=== PATIENT | male | born 1930 | race Caucasian/White ===

== ENCOUNTER 2017-06-18 07:15 | Day surgery (SDC) | payer MEDICARE ==
[~2017-06-18] VITALS: Ht 172.7 cm; Wt 67.1 kg
[~2017-06-18 07:15] MED LIST: ASPIRIN EC81 MG PO; CARVEDILOL25 MG PO; FINASTERIDE5 MG PO; NORCO 5-325 TA1 EACH PO
--- NOTE | 2017-06-18 08:46 | NUR ---
PT IS ALERT AND ORIENTED. HE IS SOMEWHAT HARD OF HEARING, BUT WE MANAGED. HE HAS HAD PREVIOUS SCOPES-GENERAL MAINTENANCE. HE SEEMED PREPARED, THANKED ME FOR COMING IN-I EXTENDED A BLESSING TO HIM
--- NOTE | 2017-06-18 08:56 | NUR ---
06/18/17 0856 Amelia King 0843 ARRIVED IN PACU SLEEPY. ABD SOFT.
--- NOTE | 2017-06-26 18:42 | OR ---
[facility] [address], [place] [address] Signed DATE OF OPERATION: 06/18/2017 SURGEON: Chilo Jo MD PREOPERATIVE DIAGNOSES: 1. Personal history of colonic polyps. 2. Diverticulosis. 3. Internal anal skin tags. POSTOPERATIVE DIAGNOSES: 1. Moderate sigmoid diverticulosis. 2. Internal anal skin tags. 3. Prostate gland left side greater than right side. PROCEDURE: Colonoscopy without biopsy. ESTIMATED BLOOD LOSS: None. INDICATIONS: Briana is an 86-year-old gentleman, I have known for a number of years. He remains extremely active. In fact, last summer, he continues to mow his lawn in the neighboring [facility] with a push mower. He came to us in 2013 for repair of recurrent right inguinal hernia because it was bothering him with his activities. We have also helped him with various skin lesions. He has had a number of colonoscopies with a history of colonic polyps removed. Most of those were adenomatous. He also had a large villous adenomatous polyp with high-grade dysplasia removed from the anterior rectum at 12 cm. He remains quite concerned in that regard. His last colonoscopy was in 2011 and he wanted to come back and inquire about another colonoscopy. He also has moderate sigmoid diverticulosis along with internal anal skin tags. In the meantime, he continues to do well with his activities of daily living and his bowel movements. I had a long discussion with Briana in the office with respect to his age and ongoing colonoscopies. I think we will check him this one last time. He has been easy to scope in the past and he does well with his Versed and fentanyl. He understands colonoscopy very well. He understands there is risk including, but not limited to, gas bloating, crampy abdominal pain, bleeding, perforation, requiring surgery, and missed diagnosis. He also understands the need for IV conscious sedation. He had expressed understanding and wished to proceed. PROCEDURE NOTE: Electronically Signed By: CHILO JO MD 06/26/17 1842 PATIENT NAME: BRIANA WHITTAKER OPERATIVE REPORT DATE OF : 32 PHYSICIAN: CHILO JO MD REPORT #: [id number] REPORT IS CONFIDENTIAL AND NOT TO BE RELEASED WITHOUT AUTHORIZATION [facility] [address], [place] [address] Signed Briana was taken into our endoscopy suite and placed in the left lateral decubitus position. He was given 4 mg of Versed and 100 mcg of fentanyl for the case. A digital rectal exam was performed and his prostate gland is indurated and ever so slightly enlarged, but the left is certainly more prominent than the right. After this, the adult colonoscope was introduced and advanced under direct visualization of camera into the cecum without difficulty. His prep was moderate. He had some liquid particulate stool matter and I could not quite suction out completely. We saw no pathology in the colon other than his diverticulosis. They are moderate in size, moderate in number, and scattered about through the sigmoid colon and part of the left colon. There was no evidence of any polyps in the rectum. Upon retroflexion of scope, he does have some internal anal skin tags. After this, the gas was suctioned out and the colonoscope removed. Briana tolerated the procedure quite well. RECOMMENDATIONS: Briana can follow up in my office as needed for any future colonoscopies. He does have a skin lesion on his back that he wants me to remove and he is welcome to maintain that appointment. In addition, he might review his prostate exam with his primary care provider. Chilo Jo MD ALB/MODL /[id number] cc: Nelson Parra MD Electronically Signed By: CHILO JO MD 06/26/17 1842 PATIENT NAME: BRIANA WHITTAKER OPERATIVE REPORT DATE OF : 32 PHYSICIAN: CHILO JO MD REPORT #: [id number] REPORT IS CONFIDENTIAL AND NOT TO BE RELEASED WITHOUT AUTHORIZATION
== END 2017-06-18 09:15 | disposition home or self-care (01) ==
LOC: OPS 07:15 → DS 07:15 → OPS 09:15
PROVIDERS: Colon & Rectal Surgery
PROC: 0DJD8ZZ Inspection of Lower Intestinal Tract, Via Natural or Artificial Opening Endoscopic (ICD-10-PCS; principal; 2017-06-18 08:15)
DX: K57.30 Diverticulosis of large intestine without perforation or abscess without bleeding (principal); K64.8 Other hemorrhoids; I10 Essential (primary) hypertension; N40.0 Benign prostatic hyperplasia without lower urinary tract symptoms; M19.90 Unspecified osteoarthritis, unspecified site; F41.9 Anxiety disorder, unspecified; Z86.010 Personal history of colon polyps; Z86.73 Personal history of transient ischemic attack (TIA), and cerebral infarction without residual deficits; Z98.890 Other specified postprocedural states; Z79.899 Other long term (current) drug therapy
CPT/HCPCS: 99153; G0500; J2250; J3010

== ENCOUNTER 2017-10-10 04:59 | Emergency (ER) | payer MEDICARE ==
[~2017-10-10] VITALS: Ht 172.7 cm; Wt 67.1 kg
[2017-10-10] MEDS ORDERED: OXYBUTYNIN CHLOR5 MG PO (05:22)
[2017-10-10] MEDS ORDERED: SERTRALINE HCL25 MG PO (05:22)
[2017-10-10] MEDS ORDERED: ONDANSETRON ODT8 MG PO (08:51)
[2017-10-10] MEDS ORDERED: NORCO 5-325 TA1 EACH PO (08:51)
[2017-10-10] MEDS ORDERED: FLOMAX0.4 MG PO (08:54)
== END 2017-10-10 09:14 | disposition home or self-care (01) ==
LOC: ED 04:59
PROC: 4A0D7LZ Measurement of Urinary Volume, Via Natural or Artificial Opening (ICD-10-PCS; principal; 2017-10-10)
DX: N13.2 Hydronephrosis with renal and ureteral calculous obstruction (principal); I10 Essential (primary) hypertension; Z79.899 Other long term (current) drug therapy
CPT/HCPCS: 51798; 74177; 80053; 81001; 83690; 85025; 99284; Q9967